=== PATIENT | male | born 1975 | race Caucasian/White ===

== ENCOUNTER 2024-12-17 11:22 | Emergency (ER) | payer OTHER, SELFPAY ==
[2024-12-17 11:24] VITALS: PULSE 81
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
[2024-12-17 13:52] VITALS: BP 122/78; PULSE 88; RESP 16; TEMP 36.6; O2SAT 99
== END 2024-12-17 13:17 | disposition home or self-care (01) ==
PROVIDERS: Emergency Provider Emergency Medicine; PCP Family Medicine
DX: S13.4XXA Sprain of ligaments of cervical spine, initial encounter (principal); V49.9XXA Car occupant (driver) (passenger) injured in unspecified traffic accident, initial encounter; R51.9 Headache, unspecified; M54.9 Dorsalgia, unspecified
CPT/HCPCS: 70450; 72125; 99284